=== PATIENT | male | born 2005 | race Caucasian/White ===

== ENCOUNTER → 2024-08-20 | Outpatient (CLI) | payer OTHER ==
[~2024-08-20] MED LIST: [UNRECOGNIZED DRUG - OTHER]
[2024-08-20 18:03] LABS: Source, Urine Clean Catch
[2024-08-20 19:06] LABS: Bilirubin, Urine Neg (Neg); Color, Urine Yellow (P-Yellow); Glucose Qualitative, Urine Neg (Neg); Ketones, Urine Neg (Neg); Leukocyte Esterase, Urine Neg (Neg); Protein, Urine 1+ (Neg); Specific Gravity, Urine 1.015 (1.003-1.022); Urobilinogen, Urine 1+ (Normal)
[2024-08-20 20:43] LABS: Red Blood Cells, Urine 0-2 /hpf (0-2); White Blood Cells, Urine 0-2 /hpf (0-5)
== END | disposition home or self-care (01) ==
LOC: LAB 18:02 → LAB SHORT 18:02
PROVIDERS: Student in an Organized Health Care Education/Training Program
DX: R35.0 Frequency of micturition (principal)
CPT/HCPCS: 81001; 87086

== ENCOUNTER 2024-11-26 13:03 | Observation (INO) | payer OTHER ==
[~2024-11-26] VITALS: Ht 190.5 cm; Wt 83.9 kg
[2024-11-26] MEDS ORDERED: LAMOTRIGINE100 M1 PO (13:15)
[2024-11-26] MEDS ORDERED: ZIPRASIDONE HCL80 MG PO (13:17)
[2024-11-26 14:32] LABS: BASOPHILS ABSOLUTE AUTO 0.04 K/mm3 (0.00-0.23); BASOPHILS PERCENT AUTO 0 % (0-2); EOSINOPHILS ABSOLUTE AUTO 0.06 K/mm3 (0.00-0.68); EOSINOPHILS PERCENT AUTO 1 % (0-6); Hematocrit 44.3 % (37.0-53.0); Hemoglobin 15.0 g/dL (13.5-17.5); IMMATURE GRAN ABSOLUTE AUTO 0.04 K/mm3 (0.00-0.10); IMMATURE GRAN PERCENT AUTO 0 % (0-1); LYMPHOCYTES ABSOLUTE AUTO 2.10 K/mm3 (0.84-5.20); LYMPHOCYTES PERCENT AUTO 19 % (21-46); MONOCYTES ABSOLUTE AUTO 0.78 K/mm3 (0.16-1.47); MONOCYTES PERCENT AUTO 7 % (4-13); Mean Corpuscular HGB Conc 33.9 g/dL (31.5-36.5); Mean Corpuscular Volume 89 fL (80-100); NEUTROPHILS ABSOLUTE AUTO 8.20 K/mm3 (1.96-9.15); NEUTROPHILS PERCENT AUTO 73 % (41-73); NRBC ABSOLUTE 0.00 K/mm3 (0.00-0.02); NRBC Auto 0.0 /100 WBC (0.0-0.2); Platelet Count 356 K/mm3 (150-400); RDW Coefficient Variation 12.9 % (11.7-14.2); RDW Standard Deviation 42.2 fL (35.1-46.3)
[2024-11-26 15:11] LABS: Ethanol (Alcohol), Blood, Med <3 mg/dL; Salicylate 2.4 mg/dL (2.8-20.0)
[2024-11-26 15:24] LABS: Acetaminophen, Random <2.0 ug/mL (10.0-30.0); Alanine Aminotransfer (ALT/SGP 97 U/L (12-78); Albumin, Blood 4.6 g/dL (3.4-5.0); Albumin/Globulin Ratio 1.2 (0.8-1.8); Anion Gap 7 mmol/L (3-11); Aspartate Aminotrans (AST/SGOT 67 U/L (12-37); Bilirubin, Total 0.4 mg/dL (0.1-1.0); Blood Urea Nitrogen 14 mg/dL (8-24); CO2, Blood 28 mmol/L (21-32); Calcium, Blood 9.8 mg/dL (8.5-10.1); Chloride, Blood 105 mmol/L (98-108); Creatinine, Blood 1.04 mg/dL (0.60-1.20); Globulin, Blood 4.0 g/dL (2.2-4.0); Glucose, Blood 92 mg/dL (70-99); Potassium, Blood 4.3 mmol/L (3.5-5.5); Sodium, Blood 136 mmol/L (136-145); Total Protein, Blood 8.6 g/dL (6.4-8.2)
[2024-11-26] MEDS ORDERED: ZIPR20 PO (17:34)
[2024-11-26] MEDS ORDERED: GABA300 PO (17:35)
[2024-11-26] MEDS ORDERED: ZIPR40 PO (17:37)
[2024-11-27 00:33] LABS: Source, Urine Clean Catch
[2024-11-27 00:37] LABS: Bilirubin, Urine Neg (Neg); Glucose Qualitative, Urine Neg (Neg); Ketones, Urine Neg (Neg); Leukocyte Esterase, Urine Neg (Neg); Protein, Urine 1+ (Neg); Specific Gravity, Urine 1.010 (1.003-1.022); Urobilinogen, Urine NORM (Normal)
[2024-11-27 00:45] LABS: Color, Urine Yellow (P-Yellow); Red Blood Cells, Urine Not Seen /hpf (0-2); White Blood Cells, Urine Not Seen /hpf (0-5)
[2024-11-27 00:47] LABS: U Amphetamine Screen Not Detected; U Barbiturate Screen Not Detected; U Benzodiazapine Screen Not Detected; U Buprenorphine Screen Not Detected; U Cannabinoids Screen DETECTED; U Cocaine Screen Not Detected; U Methadone Screen Not Detected; U Methamphetamine Screen Not Detected; U Opiates Screen Not Detected; U Oxycodone Screen Not Detected; U Phencyclidine Screen Not Detected
[2024-11-27 09:29] VITALS: BP 126/76
[2024-11-27 10:09] LABS: CORONAVIRUS COVID-19 AG Negative (NEGATIVE)
== END 2024-11-27 10:39 | disposition other institution (70) ==
LOC: ER 13:03 → EOR 13:04
PROVIDERS: Emergency Medicine; Physician Assistant; ADMIT Student in an Organized Health Care Education/Training Program
DX: F31.9 Bipolar disorder, unspecified (principal); R45.851 Suicidal ideations; F17.290 Nicotine dependence, other tobacco product, uncomplicated; Z79.899 Other long term (current) drug therapy; Z59.00 Homelessness unspecified
CPT/HCPCS: 80053; 80320; 81001; 85025; 87428-QW; 99285; A9270; G0378; G0480

== ENCOUNTER 2024-11-27 09:09 | Inpatient (IN) | payer OTHER ==
[~2024-11-27] VITALS: Ht 190.5 cm; Wt 84.3 kg
[~2024-11-27 09:09] MED LIST changes: +GABA300 PO; +LAMOTRIGINE100 M1 PO; +ZIPR20 PO; +ZIPR40 PO; +ZIPRASIDONE HCL80 MG PO
[2024-11-27 10:57] VITALS: BP 121/54
[2024-11-27] MEDS ORDERED: DiphenhydrAMINE HCl 50 MG/ML 1ML Vial IM PRN (11:35)
[2024-11-27] MEDS ORDERED: Haloperidol Lactate Inj. 5 MG/ML Injection IM PRN (11:35)
[2024-11-27] MEDS ORDERED: FLU VACC TS2025-26(6MOS UP)/PF 45 MCG/0.5 ML SYRINGE IM SCH (11:35)
[2024-11-27] MEDS ORDERED: Aluminum Hydroxide 320MG/5ML 473 ML PO PRN (11:35)
[2024-11-27] MEDS ORDERED: Ondansetron 4 MG SoluTab MM PRN (11:40)
[2024-11-27] MEDS ORDERED: Polyethylene Glycol 3350 17 gm PO PRN (11:40)
[2024-11-27 11:41] VITALS: BP 121/54
[2024-11-27] MEDS ORDERED: LORazepam 2 MG/ML 1ML Injection IM PRN (11:45)
--- NOTE | 2024-11-27 16:59 | NUR ---
SHIFT SUMMARY PT ENDORSES SI, W/ NO INTENT TO ACT/PLAN AT THIS TIME, DENIES HI/AVTH. PT ANXIOUS/AGITATED DURING ADMIT AND WAS GIVEN ZYPREXA PER DR HULL. PT HAS BEEN SLEEPING/RESTING QUIETLY IN ROOM. DR HULL IN W/ PATIENT TODAY AND GAVE ORDERS FOR ORDERS FOR 1MG ATIVAN AND 10MG ZYPREXA. PT IS NOW TALKING W/ SISTER ON PHONE AND WAS IN DAYROOM JUST BEFORE NOTE. NO ACUTE EVENTS SINCE.
--- NOTE | 2024-11-27 17:33 | NUR ---
UPDATE PT BECAME AGITATED AFTER TALKING W/ PT ON THE PHONE W/ SISTER ASKING TO LEAVE/ASKING SISTER TO PICK HIM UP. EDUCATED PT ON RISKS/BENEFITS OF LEAVING/STAYING. PT THEN WENT TO ROOM AND 15 MINUTES LATER THIS RN TO TALK W/ PT ABOUT DESIRE TO LEAVE AFTER PT DEESCALATED SELF. PT NO LONGER DESIRES TO LEAVE AMA TODAY AND WILL TALK W/ DOCTOR TOMORROW.
[2024-11-27 19:32] VITALS: BP 134/66
--- NOTE | 2024-11-28 04:09 | NUR ---
SHIFT SUMMARY 28 YEAR-OLD MALE PRESENTS MODERATELY GROOMED. HE IS A NEW ADMIT AND EXHIBITS EMOTIONALLY LABILITY. HE SPEAKS IN A CLEAR VOICE AND OCCASIONALLY IN A LOUDER THAN REQUIRED VOLUME WHEN EXHIBITING AGITATION. HE IS ABLE TO MAKE AND KEEP EYE CONTACT DURING CONVERSATIONS. AT THE TIME OF HIS ASSESSMENT, WHEN ASKED ABOUT HIS MOOD HE SATED, "I JUST WANT TO GO HOME." HE ALSO DENIED SI, HI, AND AVTH AT THAT TIME. HE ATTENDED DINNER, BUT DID NOT ATTEND SNACK, AND DAY ROOM. HE OPTED TO LAY ON HIS BED DURING THOSE TIMES. DURING EVENING MEDICATION PASS HE SAW THERE WERE 3 CAPSULES (60MG) OF GEODON IN HIS MEDICATION CUP. HE STATED THAT HE ONLY TAKES 40MG AND DEMANDED TO BE GIVEN 2 OUT OF THE THREE CAPSULES. WHEN INFORMED THAT HE DOCTOR WOULD NEED TO BE CONTACTED TO CHANGE THE ORDER TO 40MG, HE BEGAN TO BECOME AGITATED. PROCEDURE WAS EXPLAINED TO HIM AND HE RETURNED TO HIS BED WHILE A NEW ORDER WAS OBTAINED. HE WAS MEDICATED PER THE NEW ORDER WITHOUT FURTHER INCIDENT. HE CONTINUES TO BE MONITORED EVERY 15 MINUTES FOR WELLNESS AND SAFETY.
[2024-11-28 08:15] LABS: CHOL/HDL RATIO 2.9; Cholesterol 166 mg/dL (50-200); HDL Cholesterol 57 mg/dL (>39); LDL/HDL RATIO 1.7; Low Density Lipoprotein Chol 97 mg/dL (0-110); Triglycerides 60 mg/dL (30-140); Very Low Density Lipoprot Chol 12 mg/dL (6-28)
[2024-11-28 08:43] VITALS: BP 147/90
[2024-11-28] MEDS ORDERED: Multivitamins 1 Tab PO SCH (09:00)
--- NOTE | 2024-11-28 15:31 | NUR ---
SHIFT ASSESSMENT: PT DENIED SI BUT ENDORSED THE THOUGHT OF SOME SELF HARM, HE DENIED HI, AVH AND PHYSICAL PAIN. HE REPORTED, "MEDIUM" AMOUNT OF ANXIETY." WHEN ASKED ABOUT HIS MOOD HE REPLIED, "I CAN'T STAND IT HERE...I GOTTA GET OUTA HERE...THERE'S NO STIMULATION HERE...I CAN'T SMOKE CIGARETTES OR POT." HIS GOAL FOR TODAY, "LEAVE THIS PLACE." PT STAYED IN BED THIS MORNING OTHER THAN MEALS, HE WAS VERY DISAGREEABLE WITH STAFF AND OTHER PT'S. SECURITY WAS CALLED FOR PT OUTBURST. AMA PAPERS WERE SIGNED BY THE PT. HE WAS COOPERATIVE WITH TAKING MEDICATIONS BUT NOT WITH ANY OTHER CARE. HE ATTENDED NO GROUPS. DISCHARGE NOTE: 13:38 PT LEFT AMA WITH ALL OF HIS BELONGINGS. A MENTOR CAME AND TRANSPORTED PT [facility] OF [facility]. PT WAS GIVEN RISK AND BENEFITS AND ENCOURAGED TO STAY ON BHU. PT INSISTED ON LEAVING.
== END 2024-11-28 13:38 | disposition left against medical advice (07) | DRG 885 ==
LOC: BHU 09:09
PROVIDERS: ADMIT Psychiatry & Neurology Psychiatry
DX: F31.2 Bipolar disorder, current episode manic severe with psychotic features (principal); R45.851 Suicidal ideations; Z59.01 Sheltered homelessness; Z53.29 Procedure and treatment not carried out because of patient's decision for other reasons; F17.290 Nicotine dependence, other tobacco product, uncomplicated; F12.90 Cannabis use, unspecified, uncomplicated; Z79.899 Other long term (current) drug therapy; Z79.1 Long term (current) use of non-steroidal anti-inflammatories (NSAID); Z28.21 Immunization not carried out because of patient refusal
CPT/HCPCS: 36415; 80061; 83036; A9270

== ENCOUNTER 2024-12-11 16:30 | Emergency (ER) | payer OTHER ==
[~2024-12-11] VITALS: Ht 190.5 cm; Wt 88.5 kg
[2024-12-11 16:53] VITALS: BP 151/81
[2024-12-11 17:48] LABS: Influenza A, PCR NEGATIVE (NEGATIVE); Influenza B, PCR NEGATIVE (NEGATIVE); Resp Syncytial Virus, PCR NEGATIVE (NEGATIVE); SARS-Cov-2 (COVID-19) PCR, MMC NEGATIVE (NEGATIVE)
[2024-12-11] MEDS ORDERED: Ketorolac Tromethamine 15mg Vial IM ONE (19:10)
== END 2024-12-11 19:52 | disposition home or self-care (01) ==
LOC: ER 16:30
PROVIDERS: Physician Assistant
DX: J06.9 Acute upper respiratory infection, unspecified (principal)
CPT/HCPCS: 87637; 96372; 99283-25; J1885

== ENCOUNTER 2024-12-13 18:41 | Emergency (ER) | payer OTHER ==
[~2024-12-13] VITALS: Ht 190.5 cm; Wt 88.5 kg
[2024-12-13 19:12] VITALS: BP 136/56
[2024-12-13] MEDS ORDERED: NAPR500 PO (20:44)
[2024-12-13] MEDS ORDERED: ONDA4 PO (20:44)
== END 2024-12-13 21:05 | disposition home or self-care (01) ==
LOC: ER 18:41
DX: J06.9 Acute upper respiratory infection, unspecified (principal); R51.9 Headache, unspecified; M79.10 Myalgia, unspecified site; Z79.899 Other long term (current) drug therapy
CPT/HCPCS: 99282

== ENCOUNTER 2025-01-13 17:58 | Emergency (ER) | payer OTHER ==
[~2025-01-13] VITALS: Ht 182.9 cm; Wt 68.0 kg
[~2025-01-13 17:58] MED LIST changes: +NAPR500 PO; +ONDA4 PO
[2025-01-13 18:05] VITALS: BP 134/79
[2025-01-13] MEDS ORDERED: Methyl Salicylate/Menth/Camph 57 GM TUBE TOP ONE (18:10)
[2025-01-13] MEDS ORDERED: Ketorolac Tromethamine 15mg Vial IM ONE (18:10)
[2025-01-13] MEDS ORDERED: IBUP400 PO (20:09)
== END 2025-01-13 20:25 | disposition home or self-care (01) ==
LOC: ER 17:58
DX: S29.012A Strain of muscle and tendon of back wall of thorax, initial encounter (principal); F17.290 Nicotine dependence, other tobacco product, uncomplicated; X58.XXXA Exposure to other specified factors, initial encounter; Z79.899 Other long term (current) drug therapy
CPT/HCPCS: 96372; 99282-25; A9270; J1885